=== PATIENT | female | born 1990 | race Caucasian/White ===

== ENCOUNTER 2021-05-06 16:16 | Emergency (ER) | payer OTHER, SELFPAY ==
[2021-05-06 17:24] VITALS: BP 136/93; PULSE 92; RESP 16; TEMP 36.7; O2SAT 98; BMI 21.6
--- NOTE | 2021-05-06 17:37 | ED_ITS ---
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 While outside she was bitten by an insect, took a pictures of it. Patient reports that the area was red, no swelling or induration. Denies any allergy to bee sting. Patient denies any shortness of breath. Patient reports that the rash is gone right now, however she is feeling little burning. Patient denies any other symptoms. Onset (ago): hour(s) Location: right and upper extremity Radiation: non-radiation Severity: mild Quality: burning Related Data Previous Rx's Medication Instructions Recorded diphenhydramine HCl 25 mg capsule 25 mg PO BEDTIME PRN #10 cap 05/06/21 (Allergy (diphenhydramine)) Allergies Allergy/AdvReac Type Severity Reaction Status Date / Time No Known Allergies Allergy Verified 05/06/21 17:28 Review of Systems Review of Systems: Constitutional : No Weight loss, No Fever, No Chills, No Night Sweats, No Fatigue, No Malaise ENT/Mouth : No Hearing loss, No Ear Pain, No Nasal Congestion, No Sinus Pain, No Hoarseness, No sore throat, No Rhinorrhea, No Swallowing Difficulty Eyes: No Eye Pain, No Swelling, No Redness, No Foreign Body, No Discharge, No Vision Changes Cardiovascular : No Chest Pain, No SOB, No Dyspnea on Exertion, No Orthopnea, No Edema, No Palpitations Respiratory : No Cough, No Sputum, No Wheezing, No Smoke Exposure, No Dyspnea Gastrointestinal : No Nausea, No Vomiting, No Diarrhea, No Constipation, No abdominal Pain, No Hematochezia, No Melena Genitourinary : no irregular bleeding, No Dysuria, No Urinary Frequency, No Hematuria, No Urinary Incontinence, No Urgency, No Flank Pain, No Urinary Flow Changes, No Hesitancy Musculoskeletal : No joint pain, No Myalgias, No Joint Swelling Skin : No Skin Lesions, No rash. Bug bite to right upper arm Yes all other systems are reviewed and are negative PMFSH Past Medical History Medical History (Updated 05/06/21 @ 18:14 by Naomi D Krystin, [employer]) No known health problems Social History Social History Advance Directives: No Advance Directives Information Provided: Yes Patient : No Physical Exam Vital Signs: Vital Signs: Last Vital Signs Temp 98.1 F 05/06/21 17:24 Pulse 92 05/06/21 17:24 Resp 16 05/06/21 17:24 BP 136/93 H 05/06/21 17:24 Pulse Ox 98 05/06/21 17:24 Body Mass Index 21.6 Const: General: healthy appearing, no acute distress and well developed Nutritional Appearance: well nourished Orientation/consciousness: patient oriented x3 HENMT: Head: Yes normal to inspection, Yes normocephalic and Yes atraumatic Face and sinus: Yes normal facial exam Throat: Yes posterior oropharynx normal Eyes: General: appearance normal, both eyes and all related structures Neck: Neck: Yes normal visual inspection, Yes full ROM and Yes trachea midline Thyroid: Thyroid normal Chest: Chest palpation & inspection: normal inspection of the chest Resp: Auscultation: clear to auscultation bilaterally Cardio: Rate: regular rate Rhythm: regular rhythm GI: Inspection: Yes normal to inspection and No distended Auscultation: normal bowel sounds Skin: General skin exam: elasticity normal, turgor normal and dry skin Lesions: no lesions Rashes: no rashes Wounds: no wounds Neuro: General: patient oriented x3 Course Course Course Narrative: Patient reports that she was bitten by an insect today. Patient took pictures that showed erythema with small pinpointed red center. Erythema is gone now. Patient reports mild burning sensation. I will send her home with Benadryl. Patient denies any respiratory symptoms. Patient states that she never had any respiratory symptoms after the bite. Discharge Plan Discharge Clinical Impression: Insect bites Qualifiers: Encounter type: initial encounter Site of insect bite: upper arm Laterality: right Qualified Code(s): S40.861A - Insect bite (nonvenomous) of right upper arm, initial encounter Patient Disposition: Home, Self-Care Instructions: Insect Bite or Sting (ED) Additional Instructions: You were seen here today for insect bite. You had mild allergic reaction that went away completely. You may take Benadryl at night to help as well as apply hydrocortisone or Benadryl cream to the area. You may return to emergency department if you symptoms will get worse or if you will experience any other concerning symptoms Prescriptions: New diphenhydramine HCl [Allergy (diphenhydramine)] 25 mg capsule 25 mg PO BEDTIME PRN (Reason: allergic reaction) Qty: 10 RF: 0
== END 2021-05-06 18:22 | disposition home or self-care (01) ==
PROVIDERS: Emergency Provider Emergency Medicine; PCP Internal Medicine
DX: S40.861A Insect bite (nonvenomous) of right upper arm, initial encounter (principal); W57.XXXA Bitten or stung by nonvenomous insect and other nonvenomous arthropods, initial encounter; Y93.89 Activity, other specified; Y92.512 Supermarket, store or market as the place of occurrence of the external cause; Y99.0 Civilian activity done for income or pay
CPT/HCPCS: 99283